=== PATIENT | male | born 1950 | race Caucasian/White ===

== ENCOUNTER 2020-10-08 13:59 | Outpatient (REF) | payer MEDICARE, SELFPAY ==
[2020-10-09 13:02] LABS: Free Prostate Spec Ag 0.8 ng/mL; Percent Free Prostate Spec Ag 30 % (calc) (>25); Prostate Specific Ag Total 2.7 ng/mL (< OR = 4.0)
== END 2020-10-08 14:00 | disposition home or self-care (01) ==
LOC: HO.LAB 13:59
PROVIDERS: PCP Internal Medicine; Visit Provider Urology
DX: R97.20 Elevated prostate specific antigen [PSA] (principal); Z12.5 Encounter for screening for malignant neoplasm of prostate
CPT/HCPCS: 36415; 84153; 84154

== ENCOUNTER → 2020-10-14 10:34 | Outpatient (BNVA) | payer MEDICARE, SELFPAY | PROVIDERS: PCP Internal Medicine; Visit Provider Urology | DX: N52.9 Male erectile dysfunction, unspecified (principal); N32.0 Bladder-neck obstruction; R97.20 Elevated prostate specific antigen [PSA] | CPT/HCPCS: Q3014 ==

== ENCOUNTER 2021-10-12 13:12 | Outpatient (REF) | payer MEDICARE, SELFPAY ==
[2021-10-12 14:27] LABS: PSA,Total (Free>4and<10) 3.19 ng/mL (0.00-4.00)
== END 2021-10-12 13:13 | disposition home or self-care (01) ==
LOC: HO.LAB 13:12
PROVIDERS: PCP Internal Medicine; Visit Provider Urology
DX: R97.20 Elevated prostate specific antigen [PSA] (principal); N40.1 Benign prostatic hyperplasia with lower urinary tract symptoms; N13.8 Other obstructive and reflux uropathy; Z12.5 Encounter for screening for malignant neoplasm of prostate
CPT/HCPCS: 36415; 84153

== ENCOUNTER → 2021-10-15 09:32 | Outpatient (BNVA) | payer MEDICARE, SELFPAY | PROVIDERS: PCP Internal Medicine; Visit Provider Urology | DX: N32.0 Bladder-neck obstruction (principal); N40.1 Benign prostatic hyperplasia with lower urinary tract symptoms; N13.8 Other obstructive and reflux uropathy; N52.9 Male erectile dysfunction, unspecified; R97.20 Elevated prostate specific antigen [PSA] | CPT/HCPCS: 51798; 99212 ==

== ENCOUNTER 2022-04-08 12:05 | Outpatient (REF) | payer MEDICARE, SELFPAY ==
[2022-04-08 13:16] LABS: Prostate Specific Antigen 3.25 ng/mL (<0.05-4.0)
== END 2022-04-08 12:06 | disposition home or self-care (01) ==
LOC: HO.LAB 12:05
PROVIDERS: PCP Internal Medicine; Visit Provider Urology
DX: N40.1 Benign prostatic hyperplasia with lower urinary tract symptoms (principal); N13.8 Other obstructive and reflux uropathy; R97.20 Elevated prostate specific antigen [PSA]; Z12.5 Encounter for screening for malignant neoplasm of prostate
CPT/HCPCS: 36415; 84153

== ENCOUNTER → 2022-04-16 09:31 | Outpatient (BNVA) | payer MEDICARE, SELFPAY | PROVIDERS: PCP Internal Medicine; Visit Provider Urology | DX: N52.9 Male erectile dysfunction, unspecified (principal); N32.0 Bladder-neck obstruction; R97.20 Elevated prostate specific antigen [PSA] | CPT/HCPCS: Q3014 ==

== ENCOUNTER 2022-10-14 12:51 | Outpatient (REF) | payer MEDICARE, SELFPAY ==
[2022-10-14 14:44] LABS: PSA,Total (Free>4and<10) 3.31 ng/mL (0.00-4.00)
== END 2022-10-14 12:52 | disposition home or self-care (01) ==
LOC: HO.LAB 12:51
PROVIDERS: PCP Internal Medicine; Visit Provider Urology
DX: Z12.5 Encounter for screening for malignant neoplasm of prostate (principal); N32.0 Bladder-neck obstruction
CPT/HCPCS: 36415; 84153

== ENCOUNTER 2022-10-22 15:45 | Outpatient (AMB) | payer MEDICARE, SELFPAY ==
--- NOTE | 2022-10-22 16:00 | MHC.OFFVIS ---
Intake Intake Visit Reasons: 6M PSA(set) Intake Note: Patient is present for PSA Results: 10/14/22- PSA: 3.31 Urology Med: Finasteride, Tadalafil Antibiotic Allergy: none Blood Thinner: none Allergies No Known Allergies [No Known Allergies*] Allergy (Verified 10/22/22 16:04) Medication List - Last Reconciled 10/22/22 by Melo Sims MD finasteride 5 mg PO DAILY 90 days ketoconazole 2% topical lisinopril-hydrochlorothiazide 20-12.5 mg 1 tab PO DAILY nirmatrelvir-ritonavir 150-100 mg (Paxlovid) 2 ea PO BID tadalafil 20 mg PO DAILY 90 days tadalafil 10 mg PO DAILY 90 days valacyclovir 1,000 mg PO DAILY HPI HPI Comments History of Present Illness Details Terry is a pleasant male. He is a patient of Dr. Eng. He seen for following urologic conditions - elevated PSA - lower urinary tract symptoms - erectile dysfunction PSA shows stability Continue with combination finasteride and Flomax Using 10 mg on demand Cialis Twelve month follow-up Elevated PSA Initially had low PSA that jumped to 5 Prostate biopsy performed and was negative Current therapy [facility] 08/30 3.0, 09/28 2.7, 10/30 3.1, 04/01 3.25, 10/31 3.3 Lower urinary tract symptoms Current therapy Proscar Prior therapy combination Proscar with tamsulosin Symptom evaluation 10/29 nocturia x1, good stream, effective emptying PVR 0cc Erectile dysfunction Has switched to 20 mg Cialis every day Would also like 10 mg on demand PFSH Medical History Elevated PSA Enlarged prostate without lower urinary tract symptoms (luts) Erectile dysfunction Hepatitis C HTN (hypertension) Skin cancer Surgical History H/O prostate biopsy S/P nasal surgery Status post surgical removal of malignant neoplasm of skin Family History Father Lung cancer Mother Brain cancer Review of Systems Const Denies chills and Denies fever(s) Card Reports no additional complaints and Denies syncope Resp Denies cough GI Denies abdominal pain and Denies heartburn Reports as per HPI and Denies change in libido Neuro Denies syncope Psych Denies change in libido Endo Denies change in libido Physical Exam Const General: cooperative, healthy appearing, comfortable and no acute distress Orientation/consciousness: patient oriented x3 HEENT Face and sinus: Yes normal facial exam Mouth: moist mucous membranes Neck Neck: Yes normal visual inspection, Yes full ROM and Yes trachea midline Chest Chest palpation & inspection: normal inspection of the chest Resp Effort & Inspection: normal respiratory effort, able to speak in complete sentences and no respiratory distress GI Inspection: Yes normal to inspection Back/Spine/Pelvis Cervical Spine: normal cervical lordosis Thoracic/Lumbar Spine: thoracic and lumbar spine normal to inspection Skin General skin exam: no rashes or lesions noted Neuro General: patient oriented x3, gait normal, tone normal and moves all extremities Extrem General: Yes normal to inspection and Yes capillary refill normal Assessment & Plan Assessment & Plan (1) Erectile dysfunction: Code(s): N52.9 - Male erectile dysfunction, unspecified (2) Bladder outlet obstruction: Code(s): N32.0 - Bladder-neck obstruction (3) Elevated PSA: Code(s): R97.20 - Elevated prostate specific antigen [PSA] Plan Twelve month follow-up Orders: Orders Prostate Specific Antigen 364 Days R97.20 - Elevated prostate specific antigen [PSA] Medications: Refilled finasteride 5 mg PO DAILY 90 tabs 3RF 90 days R97.20 - Elevated prostate specific antigen [PSA] Patient Instructions: Imaging studies, laboratory and physical exam results were discussed and reviewed in detail. No major barriers to patient understanding were identified. An opportunity to ask questions regarding the treatment plan was provided. All questions were answered. The patient expressed understanding and agreement with the above treatment plan. The patient is aware they should contact our office by phone for worsening of their current condition or the appearance of new urologic symptoms. Compliance is encouraged with any medications and followup testing that is ordered. It is a privilege to participate in the urologic care of your patient. If you have any questions or concerns regarding treatment for the above conditions, or other urologic issues, please do not hesitate to contact me. The office telephone contact is [phone]. This note is constructed using voice recognition software. While every effort has been made to ensure accuracy supervisor slate splitting errors may have been included. Yours sincerely, Dr Melo Sims MD, [facility] - Urology Providers of Expert, Compassionate Care for the Genitourinary System Coding Level of Care Code Est Pt Level 3 (21536) Diagnoses Erectile dysfunction N52.9 Bladder outlet obstruction N32.0 Elevated PSA R97.20
== END 2022-10-22 16:24 | disposition home or self-care (01) ==
LOC: HO.HUSH 15:45
PROVIDERS: PCP Internal Medicine; Visit Provider Urology
DX: N52.9 Male erectile dysfunction, unspecified (principal); N32.0 Bladder-neck obstruction; R97.20 Elevated prostate specific antigen [PSA]
CPT/HCPCS: 99213

== ENCOUNTER → 2022-10-22 15:45 | Outpatient (BNVA) | payer MEDICARE, SELFPAY | PROVIDERS: PCP Internal Medicine; Visit Provider Urology | DX: N52.9 Male erectile dysfunction, unspecified (principal); N32.0 Bladder-neck obstruction; R97.20 Elevated prostate specific antigen [PSA] | CPT/HCPCS: 99212 ==

== ENCOUNTER 2023-10-17 13:18 | Outpatient (REF) | payer MEDICARE, SELFPAY ==
[2023-10-17 15:54] LABS: Prostate Specific Antigen 5.93 ng/mL (<0.05-4.0)
== END 2023-10-17 13:19 | disposition home or self-care (01) ==
LOC: HO.LAB 13:18
PROVIDERS: PCP Internal Medicine; Visit Provider Urology
DX: R97.20 Elevated prostate specific antigen [PSA] (principal); Z12.5 Encounter for screening for malignant neoplasm of prostate
CPT/HCPCS: 36415; 84153

== ENCOUNTER 2023-10-25 11:36 | Outpatient (AMB) | payer MEDICARE, SELFPAY ==
--- NOTE | 2023-10-25 11:39 | A.OFFVIS_ITS ---
Intake Intake Visit Reasons: 1YPSA(set)Confirmed Intake Note: Patient is Present for Follow Up Urology Medication: Finasteride (Pt states he is not taking Tadalafil) Antibiotic Allergies: None Blood Thinners: None [facility] All[facility]ies No Known Allergies [No Known Allergies*] Allergy (Verified 10/25/23 11:43) Medication List - Last Reconciled 10/25/23 by Melo Sims MD finasteride 5 mg PO DAILY 90 days ketoconazole 2% topical lisinopril-hydrochlorothiazide 20-12.5 mg 1 tab PO DAILY nirmatrelvir-ritonavir 150-100 mg (Paxlovid) 2 ea PO BID tadalafil 20 mg PO DAILY 90 days tadalafil 10 mg PO DAILY 90 days valacyclovir 1,000 mg PO DAILY HPI HPI Comments History of Present Illness Details Terry is a pleasant male. He is a patient of Dr. Eng. He seen for following urologic conditions - elevated PSA - lower urinary tract symptoms - erectile dysfunction PSA jumped to 5.9 from 3.3 On combination finasteride and Flomax Using 10 mg on demand Cialis Bogginess on VIRAL Discussed biopsy Will get ExoDX urine test Elevated PSA Initially had low PSA that jumped to 5 Prostate biopsy performed and was negative Current therapy [facility] 08/30 3.0, 09/28 2.7, 10/30 3.1, 04/01 3.25, 10/31 3.3, 11/01 5.9 Lower urinary tract symptoms Current therapy [facility] Prior therapy combination Proscar with tamsulosin Symptom evaluation 10/29 nocturia x1, good stream, effective emptying PVR 0cc Erectile dysfunction Has switched to 20 mg Cialis every day Would also like 10 mg on demand PFSH Medical History Hepatitis C Skin cancer HTN (hypertension) Erectile dysfunction Enlarged prostate without lower urinary tract symptoms (luts) Elevated PSA Surgical History Status post surgical removal of malignant neoplasm of skin S/P nasal surgery H/O prostate biopsy Family History Father Lung cancer Mother Brain cancer Review of Systems Const Denies chills and Denies fever(s) Card Reports no additional complaints and Denies syncope Resp Denies cough GI Denies abdominal pain and Denies heartburn Reports as per HPI and Denies change in libido Neuro Denies syncope Psych Denies change in libido Endo Denies change in libido Physical Exam Const General: cooperative, healthy appearing, comfortable and no acute distress Orientation/consciousness: patient oriented x3 HEENT Face and sinus: Yes normal facial exam Mouth: moist mucous membranes Neck Neck: Yes normal visual inspection, Yes full ROM and Yes trachea midline Chest Chest palpation & inspection: normal inspection of the chest Resp Effort & Inspection: normal respiratory effort, able to speak in complete sentences and no respiratory distress GI Inspection: Yes normal to inspection Rectal Exam - Male: Yes normal sphincter tone and Yes prostate normal Male General Exam: Yes normal external exam Penis: normal penis and circumcised Meatus: meatus normal Scrotum: scrotum normal Testes: Testes normal Back/Spine/Pelvis Cervical Spine: normal cervical lordosis Thoracic/Lumbar Spine: thoracic and lumbar spine normal to inspection Skin General skin exam: no rashes or lesions noted Neuro General: patient oriented x3, gait normal, tone normal and moves all extremities Extrem General: Yes normal to inspection and Yes capillary refill normal Assessment & Plan Assessment & Plan (1) Erectile dysfunction: Code(s): N52.9 - Male erectile dysfunction, unspecified (2) Elevated PSA: Code(s): R97.20 - Elevated prostate specific antigen [PSA] Plan Urine DNA, 6 week follow-up tele Orders: Orders PSA,Total (Free>4and<10) Today R97.20 - Elevated prostate specific antigen [PSA] Patient Instructions: Imaging studies, laboratory and physical exam results were discussed and reviewed in detail. No major barriers to patient understanding were identified. An opportunity to ask questions regarding the treatment plan was provided. All questions were answered. The patient expressed understanding and agreement with the above treatment plan. The patient is aware they should contact our office by phone for worsening of their current condition or the appearance of new urologic symptoms. Compliance is encouraged with any medications and followup testing that is ordered. It is a privilege to participate in the urologic care of your patient. If you have any questions or concerns regarding treatment for the above conditions, or other urologic issues, please do not hesitate to contact me. The office telephone contact is [phone]. This note is constructed using voice recognition software. While every effort has been made to ensure accuracy elementary substitute teacher errors may have been included. Yours sincerely, Dr Melo Sims MD, [facility] - Urology Providers of Expert, Compassionate Care for the Genitourinary System Coding Level of Care Code Est Pt Level 4 (44808) Diagnoses Erectile dysfunction N52.9 Elevated PSA R97.20
== END 2023-10-25 11:58 | disposition home or self-care (01) ==
PROVIDERS: Visit Provider Urology
DX: N52.9 Male erectile dysfunction, unspecified (principal); R97.20 Elevated prostate specific antigen [PSA]
CPT/HCPCS: 99214

== ENCOUNTER 2023-10-25 12:26 | Outpatient (REF) | payer MEDICARE, SELFPAY ==
[2023-10-25 16:52] LABS: PSA,Total (Free>4and<10) 5.94 ng/mL (0.00-4.00)
[2023-10-27 11:33] LABS: Free Prostate Spec Ag 2.1 ng/mL; Percent Free Prostate Spec Ag 33 % (calc) (>25); Prostate Specific Ag Total 6.4 ng/mL (< OR = 4.0)
== END 2023-10-25 12:27 | disposition home or self-care (01) ==
LOC: HO.10HDL 12:26
PROVIDERS: Visit Provider Urology
DX: Z12.5 Encounter for screening for malignant neoplasm of prostate (principal); R97.20 Elevated prostate specific antigen [PSA]
CPT/HCPCS: 36415; 84153; 84154; 99212

== ENCOUNTER 2023-12-09 11:48 | Outpatient (AMB) | payer MEDICARE, SELFPAY ==
--- NOTE | 2023-12-09 11:54 | A.OFFVIS_ITS ---
Intake Visit Reasons: 6w/PSA/Exomed(set) Intake Note: Patient is Present for Telephone Follow Up For Urology Med: Tadalafil, Finasteride Antibiotic Allergy: None Blood Thinner: none Allergies No Known Allergies [No Known Allergies*] Allergy (Verified 02/02/24 13:25) HPI Comments Details: Terry is a pleasant male. He is a patient of Dr. Eng. He seen for following urologic conditions - elevated PSA - lower urinary tract symptoms - erectile dysfunction Telemedicine Evaluation 15 min Consultation [employer] Video attempted Recommend prostate biopsy ExoDX - 35.3 Elevated PSA Initially had low PSA that jumped to 5 Prostate biopsy performed and was negative Current therapy [facility] 08/30 3.0, 09/28 2.7, 10/30 3.1, 04/01 3.25, 10/31 3.3, 11/01 5.9 Lower urinary tract symptoms Current therapy Proscar Prior therapy combination Proscar with tamsulosin Symptom evaluation 10/29 nocturia x1, good stream, effective emptying PVR 0cc Erectile dysfunction Has switched to 20 mg Cialis every day Would also like 10 mg on demand PFSH Medical History Hepatitis C Skin cancer HTN (hypertension) Erectile dysfunction Enlarged prostate without lower urinary tract symptoms (luts) Elevated PSA Surgical History Status post surgical removal of malignant neoplasm of skin S/P nasal surgery H/O prostate biopsy Family History Father Lung cancer Mother Brain cancer Review of Systems Const All systems reviewed & are unremarkable except as noted in HPI and below Denies chills and Denies fever(s) Card Reports no additional complaints and Denies syncope Resp Denies cough GI Denies abdominal pain and Denies heartburn Reports as per HPI and Denies change in libido Musc Reports no additional complaints Neuro Denies syncope Psych Denies change in libido Endo Denies change in libido Physical Exam Telemedicine evaluation Appropriate responses Regular breathing rate and rhythm HEENT Head: Yes normal to inspection Ears: hearing grossly normal bilaterally Eyes General: appearance normal, both eyes and all related structures Neck Neck: Yes normal visual inspection Chest Chest palpation & inspection: normal inspection of the chest Resp Effort & Inspection: normal respiratory effort and able to speak in complete sentences Telehealth Telehealth Telehealth Platform: [employer] Location of provider rendering services: practice address Location of patient: address on file Patient Identification confirmed using: Name, : Yes Telehealth method: video Patient verbally consented to treatment: Yes Patient verbally consented to billing insurance company: Yes Patient informed of any privacy concerns related to visit: Yes Minutes spent on Phone/Video with Pt.: 15 Assessment & Plan Assessment & Plan (1) Elevated PSA: Code(s): R97.20 - Elevated prostate specific antigen [PSA] Category: Medical (2) Erectile dysfunction: Code(s): N52.9 - Male erectile dysfunction, unspecified Category: Medical (3) Bladder outlet obstruction: Code(s): N32.0 - Bladder-neck obstruction Category: Medical Plan Risks and benefits regarding trans rectal ultrasound with prostate biopsy were discussed. Options of continued surveillance, no treatment and biopsy were off ered. The risks include but are not limited to, urinary tract infection, sepsis, difficulty urinating, bleeding into the rectum or bladder that requires intervention and transfusion,and failure to diagnose prostate cancer. The patient understands the options and the risks involved. They wish to proceed. Printed information was provided to ensure he remains off anticoagulation for the appropriate length of time. He may require cardiology or PCP clearance. An antibiotic will be administered prior to, and following the procedure Patient Instructions: Imaging studies, laboratory and physical exam results were discussed and reviewed in detail. No major barriers to patient understanding were identified. An opportunity to ask questions regarding the treatment plan was provided. All questions were answered. The patient expressed understanding and agreement with the above treatment plan. The patient is aware they should contact our office by phone for worsening of their current condition or the appearance of new urologic symptoms. Compliance is encouraged with any medications and followup testing that is ordered. It is a privilege to participate in the urologic care of your patient. If you have any questions or concerns regarding treatment for the above conditions, or other urologic issues, please do not hesitate to contact me. The office telephone contact is [phone]. This note is constructed using voice recognition software. While every effort has been made to ensure accuracy card grinder helper errors may have been included. Yours sincerely, Dr Melo Sims MD, [facility] - Urology Providers of Expert, Compassionate Care for the Genitourinary System Coding Level of Care Code Tele Est Pt Level 4 (41929) Diagnoses Elevated PSA R97.20 Erectile dysfunction N52.9 Bladder outlet obstruction N32.0
== END 2023-12-09 13:30 | disposition home or self-care (01) ==
LOC: HO.HUSH 11:48
PROVIDERS: PCP Internal Medicine; Visit Provider Urology
DX: R97.20 Elevated prostate specific antigen [PSA] (principal); N52.9 Male erectile dysfunction, unspecified; N32.0 Bladder-neck obstruction
CPT/HCPCS: 99214

== ENCOUNTER → 2023-12-09 11:48 | Outpatient (BNVA) | payer MEDICARE, SELFPAY | PROVIDERS: PCP Internal Medicine; Visit Provider Urology ==

== ENCOUNTER 2024-01-17 07:34 | Outpatient (REF) | payer MEDICARE, SELFPAY ==
--- NOTE | 2024-01-17 08:25 | W.PM.OPN ---
Operative Note Operative Note Date of Service: 01/17/24 Narrative: Preoperative diagnosis: Elevated PSA Postoperative diagnosis: Elevated PSA Procedure: 1. transrectal ultrasound measurement of prostate 2. transrectal ultrasound-guided pudendal nerve block 3. transrectal ultrasound-guided prostate biopsy 12 core Surgeon: Dr. Melo Sims Anesthetic: 10cc 1% lidocaine Indications for procedure: Elevated PSA 5.9 33% Counselling: Technical aspects, risks and benefits of proposed procedure were discussed in full. All questions have been answered, written consent has been obtained and patient agrees to proceed. Procedure: The patient was brought into the procedure area and placed in a left lateral decubitus position. Patient identity confirmed. Perioperative antibiotics confirmed. Safety pause time out performed. VIRAL performed to dilate rectal sphincter Iodine 10cc with 60 cc gel was placed per rectum to reduce infection risk using a catheter tip syringe. 8 Hz Juan rectal end-fire ultrasound probe was placed transrectally without difficulty. The prostate was visualized. Seminal vesicles were normal. Prostate margins were clearly demarcated. Bladder was seen superiorly. No cystic structures were noted Yes calcifications were noted at the surgical margin The prostate was otherwise heterogenous in nature The prostate was measured in 3 dimensions Prostatic Width: 5.2 cm Prostatic Height: 3.7 Urethral Length:4.6 Total volume equals : 45 gm An ultrasound-guided pudendal nerve block was performed using a 22 gauge spinal needle in the sagittal plane. 4 cc of 1% lidocaine placed at the junction of each seminal vesicle and 2 cc placed at the apex of the prostate. A 12 core biopsy was performed with 6 cores each side using an 18 gauge prostate biopsy gun. Two cores were taken at the apex, mid and base. Cores were spaced between lateral and medial. Each core was examined as placed on specimen foam as part of coding quality coordinator to ensure minimum 1 cm of length and minimal discontinuity. He tolerated the procedure well, minimal rectal bleeding. Blood pressure remained stable following procedure. Was able to ambulate to bathroom after 5 minutes. - initial BP 133/79, final BP 129/78 HR 94, pulse ox 90%. Printed instructions regarding antibiotic use and common side effects from the procedure such as low-grade temperature, potential infection and bleeding were given Pathology: 12 core prostate biopsy.
[2024-01-17] MEDS: Lidocaine HCl 1 % MPF 5 ML VIAL 10 ML SUBCUT (08:39)
== END 2024-01-17 07:35 | disposition home or self-care (01) ==
LOC: HO.US 07:34
PROVIDERS: PCP Internal Medicine; Visit Provider Urology
DX: R97.20 Elevated prostate specific antigen [PSA] (principal)
CPT/HCPCS: 55700; 76942; 88305; 88344

== ENCOUNTER → 2024-01-17 07:34 | Outpatient (BNV) | payer MEDICARE, SELFPAY | PROVIDERS: PCP Internal Medicine; Visit Provider Urology | DX: R97.20 Elevated prostate specific antigen [PSA] (principal) | CPT/HCPCS: 55700; 76942 ==

== ENCOUNTER 2024-02-02 13:23 | Outpatient (AMB) | payer MEDICARE, SELFPAY ==
--- NOTE | 2024-02-02 13:23 | MHC.OFFVIS ---
Intake Visit Reasons: Prostate biopsy results Intake Note: Patient is Present for Telephone Follow Up For biopsy results Urology Med: finasteride, Tadalafil Antibiotic Allergy:None Blood Thinner:None Allergies No Known Allergies [No Known Allergies*] Allergy (Verified 02/02/24 13:25) Medication List - Last Reconciled 02/02/24 by Melo Sims MD finasteride 5 mg PO DAILY 90 days ketoconazole 2% topical levofloxacin 250 mg PO ONCE lisinopril-hydrochlorothiazide 20-12.5 mg 1 tab PO DAILY nirmatrelvir-ritonavir 150-100 mg (Paxlovid) 2 ea PO BID tadalafil 20 mg PO DAILY 90 days tadalafil 10 mg PO DAILY 90 days valacyclovir mg PO HPI Comments Details: Terry is a pleasant male. He is a patient of Dr. Eng. He seen for following urologic conditions - elevated PSA - lower urinary tract symptoms - erectile dysfunction Telemedicine Evaluation 15 min Consultation [employer] Video Discussed biopsy result Negative with chronic inflammation Continue six-month follow-up Elevated PSA Initially had low PSA that jumped to 5 Prostate biopsy performed and was negative Current therapy [facility] 08/30 3.0, 09/28 2.7, 10/30 3.1, 04/01 3.25, 10/31 3.3, 11/01 5.9 ExoDX - 35.3 Discussed biopsy result Negative with chronic inflammation Continue six-month follow-up Lower urinary tract symptoms Current therapy Proscar Prior therapy combination Proscar with tamsulosin Symptom evaluation 10/29 nocturia x1, good stream, effective emptying PVR 0cc Erectile dysfunction Has switched to 20 mg Cialis every day Would also like 10 mg on demand PFS Medical History Hepatitis C Skin cancer HTN (hypertension) Erectile dysfunction Enlarged prostate without lower urinary tract symptoms (luts) Elevated PSA Surgical History Status post surgical removal of malignant neoplasm of skin S/P nasal surgery H/O prostate biopsy Family History Father Lung cancer Mother Brain cancer Review of Systems Const Denies chills and Denies fever(s) Card Reports no additional complaints and Denies syncope Resp Denies cough GI Denies abdominal pain and Denies heartburn Reports as per HPI and Denies change in libido Neuro Denies syncope Psych Denies change in libido Endo Denies change in libido Physical Exam Const General: cooperative, healthy appearing, comfortable and no acute distress Orientation/consciousness: patient oriented x3 HEENT Face and sinus: Yes normal facial exam Mouth: moist mucous membranes Neck Neck: Yes normal visual inspection, Yes full ROM and Yes trachea midline Chest Chest palpation & inspection: normal inspection of the chest Resp Effort & Inspection: normal respiratory effort, able to speak in complete sentences and no respiratory distress GI Inspection: Yes normal to inspection Back/Spine/Pelvis Cervical Spine: normal cervical lordosis Thoracic/Lumbar Spine: thoracic and lumbar spine normal to inspection Skin General skin exam: no rashes or lesions noted Neuro General: patient oriented x3, gait normal, tone normal and moves all extremities Extrem General: Yes normal to inspection and Yes capillary refill normal Telehealth Telehealth Location of provider rendering services: practice address Location of patient: address on file Patient Identification confirmed using: Name, : Yes Telehealth method: video Patient verbally consented to treatment: Yes Patient verbally consented to billing insurance company: Yes Patient informed of any privacy concerns related to visit: Yes Assessment & Plan Assessment & Plan (1) Elevated PSA: Code(s): R97.20 - Elevated prostate specific antigen [PSA] Category: Medical (2) Bladder outlet obstruction: Code(s): N32.0 - Bladder-neck obstruction Category: Medical (3) Erectile dysfunction: Code(s): N52.9 - Male erectile dysfunction, unspecified Category: Medical Plan Six-month follow-up PSA Orders: Orders PSA,Total (Free>4and<10) 6 Months N32.0 - Bladder-neck obstruction Patient Instructions: Imaging studies, laboratory and physical exam results were discussed and reviewed in detail. No major barriers to patient understanding were identified. An opportunity to ask questions regarding the treatment plan was provided. All questions were answered. The patient expressed understanding and agreement with the above treatment plan. The patient is aware they should contact our office by phone for worsening of their current condition or the appearance of new urologic symptoms. Compliance is encouraged with any medications and followup testing that is ordered. It is a privilege to participate in the urologic care of your patient. If you have any questions or concerns regarding treatment for the above conditions, or other urologic issues, please do not hesitate to contact me. The office telephone contact is [phone]. This note is constructed using voice recognition software. While every effort has been made to ensure accuracy environmental health inspector errors may have been included. Yours sincerely, Dr Melo Sims MD, [facility] - Urology Providers of Expert, Compassionate Care for the Genitourinary System Coding Level of Care Code Tele Est Pt Level 3 (77885) Diagnoses Elevated PSA R97.20 Bladder outlet obstruction N32.0 Erectile dysfunction N52.9
== END 2024-02-02 14:12 | disposition home or self-care (01) ==
LOC: HO.HUSH 13:23
PROVIDERS: PCP Internal Medicine; Visit Provider Urology
DX: R97.20 Elevated prostate specific antigen [PSA] (principal); N32.0 Bladder-neck obstruction; N52.9 Male erectile dysfunction, unspecified
CPT/HCPCS: 99213

== ENCOUNTER → 2024-02-02 13:23 | Outpatient (BNVA) | payer MEDICARE, SELFPAY | PROVIDERS: PCP Internal Medicine; Visit Provider Urology ==

== ENCOUNTER 2024-07-24 12:57 | Outpatient (REF) | payer MEDICARE, SELFPAY ==
[2024-07-24 14:29] LABS: PSA,Total (Free>4and<10) 5.01 ng/mL (0.00-4.00)
--- OUTSIDE RECORDS SUMMARY | 2024-07-24 15:15 | XMS_ITS | Data Portability ---
Author Organization ID - [facility], Allergy Address [address] [place] [id number] Care Team Providers Care Manager Revenue Name Role Phone JOY ARROYO Primary Care Provider Assessment Encounter Date Assessment Date Assessment LastModified by Organization Details LastModified Time 05/08/2024 05/08/2024 2 year interval MRI scan reviewed with the patient personally. This shows no signs of change in size or character of the left internal auditory canal lesion, which remains consistent with stable, non-growing acoustic neuroma. Audiometric testing today today shows stable hearing in the affected ear. I've recommended continued observation with follow-up MRI scan in 3 years, which we will arrange for the patient. Patient was instructed to contact me if they experience any sudden changes in hearing, balance, or facial function. [email or web address] Not available 05/08/2024 08:35:38 Plan of Treatment Reminders Order Date Submit Date Provider Last Modified By Organization Details Last Modified Time Details Appointments None recorded. Lab None recorded. Referral None recorded. Procedures None recorded. Surgeries None recorded. Imaging MRI, brain + internal auditory canal, w/wo contrast - MRI, BRAIN + INTERNAL AUDITORY CANAL, W/WO CONTRAST 2023 027 [email or web address] [facility], [address] [facility], [facility] [address], [place], [address], 09:44:40 Medication Orders None recorded. Patient TargetsNo targets recorded. Patient InstructionsNo instructions recorded. Reason for Referral None Reported. Results Created Date Observation Date Name Description Value Unit Range Abnormal Flag Note LastModifiedBy Organization Detail LastModifiedTime 05/02/2004/27/2024 MRI, brain + inter nal audit ory canal , w/wo contr ast No observ ation record ed. [email or web address] [facility] [address] [facility] [address], [place], [address], 05/02/2024 11:30:04 05/08/20 24 audio gram No observ ation record ed. [email or web address] Not Available 04/11 09:44:20 Result Notes None recorded. Problems Name Problem SNOMED Code Status Onset Date Resolution Date Notes Provider Name and Address Organization Details Recorded Time Sensorine ural hearing loss of bilateral ears 436863824 Active 2018 Sensorine ural hearing loss, bilateral ; Note: Date Diagnosed : 08/22/2018 9:06 AM (H90.3) Not Available [facility] 4 02:49:26 Impacted cerumen in right ear 86471825145 90533 Active 2018 Impacted cerumen, right ear; Note: Date Diagnosed : 08/22/2018 9:06 AM (H61.21) Not Available [facility] 4 02:49:32 Deviated nasal septum 997064798 Active 2014 Deviated nasal septum; Note: Date Diagnosed : 01/03/2015 2:07 PM (470) Deviate d nasal septum; Note: Date Diagnosed : 01/03/2015 2:07 PM (J34.2) Not Available [facility] 4 02:49:30 Benign neoplasm of cranial nerve 97587100 Active 2018 Benign neoplasm of cranial nerves; Note: Date Diagnosed : 08/22/2018 9:06 AM (D33.3) Not Available [facility] 4 02:49:28 Acquired deformity of nose 22587495 Active 2014 Nasal deformity , acquired; Note: Date Diagnosed : 01/16/2015 3:38 PM (738.0) Not Available [facility] 4 02:49:31 Problem Notes None recorded. Procedures Surgical History Date Name Laterality Status Provider Name and Address Organization Details Recorded Time 05/08/2024 Air & Speech Audio with Tymps (52945, 53231 & 37600) completed HUEY SHIN, [facility] [address] [address], [place], [address], [facility] - [facility] 05/08/2024 08:50:11 Imaging Results Imaging Date Name Status LastModified by [facility] Details LastModified Time 04/27/2024 MRI, brain + internal auditory canal, w/wo contrast completed [facility] [address] [facility] [address], [place], [address], 05/02/2024 11:30:04 05/08/2024 audiogram completed [email or web address] Information n ot available 05/08/2024 09:44:20 Procedure Notes None recorded. Medical Equipment None Reported. Allergies No known drug allergies Medications Name Sig Start Date Stop Date Status Note LastModified by Organization Details LastModified Time ketoconaz ole 2 % shampoo active Not Available Not Available Not Available triazolam 0.25 mg tablet 05/25 completed Medicati on ID: [id number] D uration Value: 30 Brand Name: triazola m Send Method: E-Prescr ibed Sub s Allowed: subs OK Speci al Instruct ion: TAKE 1 TABLET BY MOUTH AT BEDTIME NEEDED M edicatio nGeneric Name: triazola m Not Available Not Available Not Available lisinopri l 20 mg-hydroc hlorothia zide 12.5 mg tablet active Not Available Not Available No t Available valacyclo vir 1 gram tablet active Not Available Not Available Not Available lisinopri l 20 mg tablet 08/22 completed Medicati on ID: [id number] Re ason: () Brand Name: lisinopr il Send Method: E-Prescr ibed Sub s Allowed: subs OK Medic ationGen ericName : lisinopr il Not Available Not Available Not Available levofloxa laron 250 mg tablet TAKE 1 TABLET THE DAY AFTER PROSTATE BIOPSY 05/08 completed Not Available Not Available Not Available valacyclo vir 500 mg tablet TAKE 1 TABLET BY MOUTH EVERY DAY FOR SUPPRESS ION 05/08 completed Not Available Not Available Not Available tamsulosi n 0.4 mg capsule 2018 active Medicati on ID: [id number] D uration Value: 90 Brand Name: tamsulos in Send Method: E-Prescr ibed Sub s Allowed: subs OK Medic ationGen ericName : tamsulos in Not Available Not Available Not Available mupirocin 2 % topical ointment APPLY TO SURGICAL SITE TWICE A DAY FOR 10-14 DAYS DAYS OR UNTIL FULLY HEALED active Not Available Not Available No t Available finasteri de 5 mg tablet active Not Available Not Available Not Available tadalafil 10 mg tablet TAKE ONE TABLET BY MOUTH EVERY DAY FOR SEXUAL ACTIVITY . DAILY MEDICATI ON active Not Available Not Available No t Available tadalafil 20 mg tablet TAKE ONE TABLET BY MOUTH EVERY DAY active Not Available Not Available No t Available Glucosami ne-Chondr oitin 3X Triple Strength 750 mg-600 mg tablet 2018 active Medicati on ID: [id number] B rand Name: Glucosam ine-Rehan droitin 3X Str Send Method: E-Prescr ibed Sub s Allowed: subs OK Medic ationGen ericName : Glucosam ine-Rehan droitin 3X Str Not Available Not Available Not Available Centrum Silver 0.4 mg-300 mcg-250 mcg tablet 2018 active Medicati on ID: [id number] B rand Name: Centrum Silver S end Method: E-Prescr ibed Sub s Allowed: subs OK Medic ationGen ericName : Centrum Silver Not Available Not Available Not Available Vitals None Recorded Social History None recorded. Functional Status None recorded. Mental Status None recorded. Family History Nothing Reported. Medical History Condition Response Cancer Hypertension Y Past Encounters Encounter ID Performer Location Encounter Start Date Encounter Closed Date Diagnosis/Indication Diagnosis SNOMED-CT Code Diagnosis ICD10 Code Diagnosis Note [id number] JERONIMO JUARES MD [facility] [address] [address] 05/08/2024 08:28:31 05/08/2024 09:44:40 Benign neoplasm of cranial nerve 98091861 D33.3 Sensorineu ral hearing loss of bilateral ears 439106155 H90.3 Audiologic al evaluation results:Ri ght ear:{{Norm al sloping* M ild Modera te Moderat mac-severe Severe Pr ofound Nor mal auditory thresholds }} to {{mild mod erate mode rately-sev ere* sever e profound with}} {{sensorin eural hearing loss with* cond uctive hearing loss with mixed hearing loss with}} {{excellen t* good fa ir poor no t measurable }} word recognitio n.Left ear:{{Norm al sloping Mi ld Moderat e* Moderat mac-severe Severe Pr ofound Nor mal auditory thresholds }} to {{mild mod erate mode rately-sev ere severe profound* with}} {{sensorin eural hearing loss with* cond uctive hearing loss with mixed hearing loss with}} {{excellen t good becca r poor* no t measurable }} word recognitio n.Tympanom etry:Right Ear:{{Type A* Type As Type Ad Type C Type C, shallow & rounded Ty pe B Type B with large volume Cou ld not maintain a hermetic seal}}Left Ear:{{Type A* Type As Type Ad Type C Type C, shallow & rounded Ty pe B Type B with large volume Cou ld not maintain a hermetic seal}}Florentino ometric testing reviewed with the patient and his . We discussed how his use of binaural amplificat ion will be helpful for general sound awareness and spatial awareness, but his right ear is best suited for speech recognitio n. He prefers using 2 hearing aids over BiCROS amplificat ion based on his previous use of both technologi es. I have given him a copy of his audiogram. We discussed that his devices are manufactur ed by [employer] and he should connect with an audiologis t who is able to continue with hearing aid maintenanc e and programmin g as needed. I have given him a copy of his audiogram and updated medical clearance so that he can pursue this at his convenienc e. Health Concerns Section Related Observation LastModified by Organization Detai ls LastModified Time None Recorded Concern Status LastModified by Organization Details LastModified Time None Recorded Advance Directives Directive None Recorded Payers Encounter Date Sequence Insurance Name Policy Number Policy Mann Covered Member ID Mann Member ID Guarantor Name 05/08/2024 1 [employer]UE (MEDICARE REPLACEMENT PPO) [id number] Buark Torre [id number] Burak Torre Notes Date Note Type Note Provider Name and Address Organization Details Recorded Time 05/08/2024 text/html Patient with kno wn {{right left*}}-mariella ed 12 x 7 x 5 mm acoustic neuroma originally detected in {{ July 2018#}} who is under serial MRI surveillance protocol. Patient comes in today for most recent {{6 month 1 year 2 year* 3 year}} MRI review. Patient notes {{no hearing changes* worse hearing}} in comparison to last visit. No facial twitching or weakness. No new balance disturbance. Patient has used BiCROS amplification in the past, but got binaural BTE [employer] amplification from [facility] which has since closed. JERONIMO JUARES MD [address] [place] [address], [place], [address], [place] - [facility] 05/08/2024 09:44:30
--- OUTSIDE RECORDS SUMMARY | 2024-07-24 15:15 | XMS_ITS | Continuity of Care Document ---
Author Organization [place] - [facility], [facility] Address [address] [place] [address] Care Team Providers Care Engine Turner Name Role Phone JOY ARROYO Primary Care Provider [phone] Assessment Encounter Date Assessment Date Assessment LastModified [...] changes in hearing, balance, or facial function. [email or web address] Not available 05/08/2024 08:35:38 Plan of Treatment Reminders Order Date Submit Date Provider Last Modified By Organization Details Last Modified Time Details Appointments None recorded. Lab None recorded. Referral None recorded. Procedures None recorded. Surgeries None recorded. Imaging MRI, brain + internal auditory canal, w/wo contrast - MRI, BRAIN + INTERNAL AUDITORY CANAL, W/WO CONTRAST 2023 027 [email or web address] [facility], [address] [address], [place], [address], 09:44:40 Medication Orders None recorded. Patient TargetsNo targets recorded. Patient InstructionsNo instructions recorded. Reason for Referral None Reported. Results Created Date Observation Date Name Description Value Unit Range Abnormal Flag Note LastModifiedBy Organization Detail LastModifiedTime 05/02/20 24 04/27/2024 MRI, brain + inter nal audit ory canal , w/wo contr ast No observ ation record ed. [facility] [address] [facility] [address], [place], [address], 05/02/2024 11:30:04 05/08/20 24 audio gram No observ ation record ed. [email or web address] Not Available 04/11 09:44:20 Result Notes None recorded. Problems Name Problem SNOMED Code Status Onset Date Resolution Date Notes Provider Name and Address Organization Details Recorded Time Sensorine ural hearing loss of bilateral ears 293979522 Active 2018 Sensorine ural hearing loss, bilateral ; Note: Date Diagnosed : 08/22/2018 9:06 AM (H90.3) Not Available [facility] 4 02:49:26 Impacted cerumen in right ear 59720603025 67314 Active 2018 Impacted cerumen, right ear; Note: Date Diagnosed : 08/22/2018 9:06 AM (H61.21) Not Available [facility] 4 02:49:32 Deviated nasal septum 538687930 Active 2014 Deviated nasal septum; Note: Date Diagnosed : 01/03/2015 2:07 PM (470) Deviate d nasal septum; Note: Date Diagnosed : 01/03/2015 2:07 PM (J34.2) Not Available [facility] 4 02:49:30 Benign neoplasm of cranial nerve 79026653 Active 2018 Benign neoplasm of cranial nerves; Note: Date Diagnosed : 08/22/2018 9:06 AM (D33.3) Not Available [facility] 4 02:49:28 Acquired deformity of nose 03174575 Active 2014 Nasal deformity , acquired; Note: Date Diagnosed : 01/16/2015 3:38 PM (738.0) Not Available [facility] 4 02:49:31 Problem Notes None recorded. Procedures Surgical History Date Name Laterality Status Provider Name and Address Organization Details Recorded Time 05/08/2024 Air & Speech Audio with Tymps (40538, 81105 & 62535) completed HUEY SHIN, [address], [address], [facility] - [facility] 05/08/2024 08:50:11 Imaging Results None recorded. Procedure Notes None recorded. Medical Equipment None Reported. Allergies No known drug allergies Medications Name Sig Start Date Stop Date Status Note LastModified by Organization Details LastModified Time ketoconaz ole 2 % shampoo active Not Available Not Available Not Available triazolam 0.25 mg tablet 05/25 completed Medicati on ID: [id number] D uration Value: 30 Brand Name: triazola [...] mg tablet 08/22 completed Medicati on ID: [id number] Re ason: () Brand Name: lisinopr il [...] mg capsule 2018 active Medicati on ID: [id number] D uration Value: 90 Brand Name: tamsulos [...] mg tablet 2018 active Medicati on ID: [id number] B rand Name: Glucosam ine-Rehan droitin 3X Str Send Method: E-Prescr ibed Sub s Allowed: subs OK Medic ationGen ericName : Glucosam ine-Rehan droitin 3X Str Not Available Not Available Not Available Centrum Silver 0.4 mg-300 mcg-250 mcg tablet 2018 active Medicati on ID: [id number] B rand Name: Centrum Silver S end [...] SNOMED-CT Code Diagnosis ICD10 Code Diagnosis Note [id number] JERONIMO JUARES MD [facility] [address] [address] 05/08/2024 08:28:31 05/08/2024 09:44:40 Benign neoplasm of cranial nerve 94574131 D33.3 Sensorineu ral hearing loss of bilateral ears 183037099 H90.3 Audiologic al evaluation results:Ri ght ear:{{Norm [...] that [facility] Health Concerns Section Related Observation LastModified by Organization Detai ls LastModified Time None Recorded Concern Status LastModified by Organization Details LastModified Time None Recorded Payers Encounter Date Sequence Insurance Name Policy Number Policy Mann Covered Member ID Mann Member ID Guarantor Name 05/08/2024 1 [facility]: MEDICARE PPO BLUE (MEDICARE REPLACEMENT PPO) [id number] Burak Torre [id number] Burak Torre Notes Date Note Type [...] which has since closed. JERONIMO JUARES MD [address] [place] [address], [address], [facility] - [facility] 05/08/2024 09:44:30
[2024-07-25 12:58] LABS: Free Prostate Spec Ag 1.3 ng/mL; Percent Free Prostate Spec Ag 25 % (calc) (>25); Prostate Specific Ag Total 5.1 ng/mL (< OR = 4.0)
== END 2024-07-24 12:58 | disposition home or self-care (01) ==
LOC: HO.LAB 12:57
PROVIDERS: PCP Internal Medicine; Visit Provider Urology
DX: N32.0 Bladder-neck obstruction (principal); Z12.5 Encounter for screening for malignant neoplasm of prostate
CPT/HCPCS: 36415; 84153; 84154

== ENCOUNTER 2024-08-01 13:15 | Outpatient (AMB) | payer MEDICARE, SELFPAY ==
--- NOTE | 2024-08-01 13:19 | A.OFFVIS_ITS ---
Intake Visit Reasons: 6M PSA(set)Elevated Intake Note: Patient is present for 6M PSA ELEVATED Urology Medication:FINASTERIDE,TADALAFIL Antibiotic Allergy:NONE Blood Thinner:NONE Sand Technician Required: No Allergies No Known Allergies [No Known Allergies*] Allergy (Verified 08/01/24 13:19) HPI Comments Details: Terry is a pleasant male. He is a patient of Dr. Eng. He seen for following urologic conditions - elevated PSA - lower urinary tract symptoms - erectile dysfunction Six-month follow-up PSA remained stable Six-month follow-up tele Elevated PSA Initially had low PSA that jumped to 5 Prostate biopsy performed and was negative Volume 45 g Current therapy [facility] 08/30 3.0, 09/28 2.7, 10/30 3.1, 04/01 3.25, 10/31 3.3, 11/01 5.9, 08/04 5.0 Free 25% ExoDX - 35.3 Lower urinary tract symptoms Current therapy Proscar Prior therapy combination Proscar with tamsulosin Symptom evaluation 10/29 nocturia x1, good stream, effective emptying PVR 0cc Erectile dysfunction Has switched to 20 mg Cialis every day Would also like 10 mg on demand PFSH Medical History Hepatitis C Skin cancer HTN (hypertension) Erectile dysfunction Enlarged prostate without lower urinary tract symptoms (luts) Elevated PSA Surgical History Status post surgical removal of malignant neoplasm of skin S/P nasal surgery H/O prostate biopsy Family History Father Lung cancer Mother Brain cancer Review of Systems Const Denies chills and Denies fever(s) Card Reports no additional complaints and Denies syncope Resp Denies cough GI Denies abdominal pain and Denies heartburn Reports as per HPI and Denies change in libido Neuro Denies syncope Psych Denies change in libido Endo Denies change in libido Physical Exam Const General: cooperative, healthy appearing, comfortable and no acute distress Orientation/consciousness: patient oriented x3 HEENT Face and sinus: Yes normal facial exam Mouth: moist mucous membranes Neck Neck: Yes normal visual inspection, Yes full ROM and Yes trachea midline Chest Chest palpation & inspection: normal inspection of the chest Resp Effort & Inspection: normal respiratory effort, able to speak in complete sentences and no respiratory distress GI Inspection: Yes normal to inspection Back/Spine/Pelvis Cervical Spine: normal cervical lordosis Thoracic/Lumbar Spine: thoracic and lumbar spine normal to inspection Skin General skin exam: no rashes or lesions noted Neuro General: patient oriented x3, gait normal, tone normal and moves all extremities Extrem General: Yes normal to inspection and Yes capillary refill normal Results AMB Urinalysis, Automated UA Leukoctes 0 Corrie/uL Last Edit by ANIBAL Salinas on 08/01/24 13:28 UA Nitrite Negative Last Edit by Marbin Lawton CCM on 08/01/24 13:28 UA Urobilinogen 0.2 mg/dL Last Edit by ANIBAL Salinas on 08/01/24 13:2 8 UA Protein 30 mg/dL Last Edit by Marbin Lawton CCM on 08/01/24 13:28 UA pH 6.0 Last Edit by Marbin Lawton CCM on 08/01/24 13:28 UA Blood 10 Marco A/uL Last Edit by Marbin Lawton CCM on 08/01/24 13:28 UA Specific [place] 1.020 Last Edit by ANIBAL Salinas on 08/01/24 13: 28 UA Ketone Negative Last Edit by ANIBAL Salinas on 08/01/24 13:28 UA Bilirubin 0 mg/dL Last Edit by Marbin Lawton CCM on 08/01/24 13:28 UA Glucose 0 mg/dL Last Edit by Marbin Lawton CCM on 08/01/24 13:28 Results Reviewed Results Reviewed: Laboratory Last Values Urine pH (Auto) 6.0 08/01/24 13:28 Specific [place] (Auto) 1.020 08/01/24 13:28 Urine Protein (Auto) 30 mg/dL 08/01/24 13:28 Glucose (UA)(Auto) 0 mg/dL 08/01/24 13:28 Urine Ketones (Auto) Negative 08/01/24 13:28 Urine Blood (Auto) 10 Marco A/uL 08/01/24 13:28 Urine Nitrite (Auto) Negative 08/01/24 13:28 Urine Bilirubin (Auto) 0 mg/dL 08/01/24 13:28 Urine Urobilinogen (Auto) 0.2 mg/dL 08/01/24 13:28 Leukocyte Esterase (Auto) 0 Corrie/uL 08/01/24 13:28 Assessment & Plan Assessment & Plan (1) Elevated PSA: Code(s): R97.20 - Elevated prostate specific antigen [PSA] Category: Medical (2) Erectile dysfunction: Code(s): N52.9 - Male erectile dysfunction, unspecified Category: Medical Plan Six-month follow-up tele PSA Orders: Orders AMB Urinalysis Automated Today Z13.9 - Encounter for screening, unspecified Prostate Specific Antigen 6 Months R97.20 - Elevated prostate specific antigen [PSA] Patient Instructions: Imaging studies, laboratory and physical exam results were discussed and reviewed in detail. No major barriers to patient understanding were identified. An opportunity to ask questions regarding the treatment plan was provided. All questions were answered. The patient expressed understanding and agreement with the above treatment plan. The patient is aware they should contact our office by phone for worsening of their current condition or the appearance of new urologic symptoms. Compliance is encouraged with any medications and followup testing that is ordered. It is a privilege to participate in the urologic care of your patient. If you have any questions or concerns regarding treatment for the above conditions, or other urologic issues, please do not hesitate to contact me. The office telephone contact is [phone]. This note is constructed using voice recognition software. While every effort has been made to ensure accuracy packerhead machine operator errors may have been included. Yours sincerely, Dr Melo Sims MD, [facility] - Urology Providers of Expert, Compassionate Care for the Genitourinary System Coding Level of Care Code Est Pt Level 3 (37197) Diagnoses Elevated PSA R97.20 Erectile dysfunction N52.9
--- OUTSIDE RECORDS SUMMARY | 2024-08-01 15:19 | XMS_ITS | Data Portability ---
Author Organization [place] - [facility], Allergy Address [address] [place] [phone] Care Team Providers Care Loop Machine Operator Name Role Phone JOY ARROYO Primary Care [...] changes in hearing, balance, or facial function. [email or web address] Not available 05/08/2024 08:35:38 Plan of Treatment Reminders Order Date Submit Date Provider Last Modified By Organization Details Last Modified Time Details Appointments None recorded. Lab None recorded. Referral None recorded. Procedures None recorded. Surgeries None recorded. Imaging MRI, brain + internal auditory canal, w/wo contrast - MRI, BRAIN + INTERNAL AUDITORY CANAL, W/WO CONTRAST 2023 027 [email or web address] [facility] [place], [address] [facility], [facility] [address], [place], [address], 09:44:40 Medication Orders None recorded. Patient TargetsNo targets recorded. Patient InstructionsNo instructions recorded. Reason for Referral None Reported. Results Created Date Observation Date Name Description Value Unit Range Abnormal Flag Note LastModifiedBy Organization Detail LastModifiedTime 05/02/2004/27/2024 MRI, brain + inter nal audit ory canal , w/wo contr ast No observ ation record ed. [email or web address] [facility] [place] [address] [facility] [address], [place], [address], 05/02/2024 11:30:04 05/08/20 24 audio gram No observ ation record ed. [email or web address] Not Available 04/11 09:44:20 Result Notes None recorded. Problems Name Problem SNOMED Code Status Onset Date Resolution Date Notes Provider Name and Address Organization Details Recorded Time Sensorine ural hearing loss of bilateral ears 025502206 Active 2018 Sensorine ural hearing loss, bilateral ; Note: Date Diagnosed : 08/22/2018 9:06 AM (H90.3) Not Available [facility] 4 02:49:26 Impacted cerumen in right ear [id number] 73015 Active 2018 Impacted cerumen, right ear; Note: Date Diagnosed : 08/22/2018 9:06 AM (H61.21) Not Available [facility] 4 02:49:32 Deviated nasal septum 197889507 Active 2014 Deviated nasal septum; Note: Date Diagnosed : 01/03/2015 2:07 PM (470) Deviate d nasal septum; Note: Date Diagnosed : 01/03/2015 2:07 PM (J34.2) Not Available [facility] 4 02:49:30 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 Procedures Surgical History Date Name Laterality Status Provider Name and Address Organization Details Recorded Time 05/08/2024 Air & Speech Audio with Tymps (16238, 34201 & 05213) completed HUEY SHIN, [facility] [address] [address], [place], [address], [facility] - [facility] 05/08/2024 08:50:11 Imaging Results Imaging Date Name Status LastModified by [facility] Details LastModified Time 04/27/2024 MRI, brain + internal auditory canal, w/wo contrast completed [email or web address] [facility] [place] [address] [facility] [address], [place], [address], 05/02/2024 11:30:04 05/08/2024 audiogram completed [email or web address] Information n ot available 05/08/2024 09:44:20 Procedure Notes None recorded. Medical Equipment None Reported. Allergies No known drug allergies Medications Name Sig Start Date Stop Date Status Note LastModified by Organization Details LastModified Time ketoconaz ole 2 % shampoo active Not Available Not Available Not Available triazolam 0.25 mg tablet 05/25 completed Medicati on ID: [id number] D uration Value: 30 Brand Name: triazola [...] mg tablet 08/22 completed Medicati on ID: [id number] Re ason: () Brand Name: lisinopr il [...] mg capsule 2018 active Medicati on ID: [id number] D uration Value: 90 Brand Name: tamsulos [...] mg tablet 2018 active Medicati on ID: [id number] B rand Name: Glucosam ine-Rehan droitin 3X Str Send Method: E-Prescr ibed Sub s Allowed: subs OK Medic ationGen ericName : Glucosam ine-Rehan droitin 3X Str Not Available Not Available Not Available Centrum Silver 0.4 mg-300 mcg-250 mcg tablet 2018 active Medicati on ID: [id number] B rand Name: Centrum Silver S end [...] SNOMED-CT Code Diagnosis ICD10 Code Diagnosis Note [id number] JERONIMO JUARES MD [facility] [address] [address] 05/08/2024 08:28:31 05/08/2024 09:44:40 Benign neoplasm of cranial nerve 90951561 D33.3 Sensorineu ral hearing loss of bilateral ears 961959468 H90.3 Audiologic al evaluation results:Ri ght ear:{{Norm [...] [place] (MEDICARE [place]PLACEMENT PPO) [id number] Burak Torre [id number] 22 Burak Torre Notes Date Note Type [...] which has since closed. JERONIMO JUARES MD [address] [place] [address], [place], [address], [place] - [facility] 05/08/2024 09:44:30
== END 2024-08-01 15:41 | disposition home or self-care (01) ==
PROVIDERS: PCP Internal Medicine; Visit Provider Urology
DX: R97.20 Elevated prostate specific antigen [PSA] (principal); N52.9 Male erectile dysfunction, unspecified; Z13.9 Encounter for screening, unspecified
CPT/HCPCS: 99213

== ENCOUNTER → 2024-08-01 13:15 | Outpatient (BNVA) | payer MEDICARE, SELFPAY | PROVIDERS: PCP Internal Medicine; Visit Provider Urology | DX: N52.9 Male erectile dysfunction, unspecified (principal); R97.20 Elevated prostate specific antigen [PSA] | CPT/HCPCS: 81003; 99212 ==

== ENCOUNTER 2025-02-04 13:19 | Outpatient (REF) | payer MEDICARE, SELFPAY ==
--- OUTSIDE RECORDS SUMMARY | 2025-02-04 14:03 | XMS_ITS | Data Portability ---
Author Organization [place] - [facility], Allergy Address [address] [place] [phone] Care Team Providers Care Button Decorating Machine Operator Name Role Phone JOY ARROYO [...] changes in hearing, balance, or facial function. [email or web address] Not available 05/08/2024 08:35:38 Plan of Treatment Reminders Order Date Submit Date Provider Last Modified By Organization Details Last Modified Time Details Appointments None recorded. Lab None recorded. Referral None recorded. Procedures None recorded. Surgeries None recorded. Imaging MRI, brain + internal auditory canal, w/wo contrast - MRI, BRAIN + INTERNAL AUDITORY CANAL, W/WO CONTRAST 2023 027 [email or web address] 14 [facility] [place], [address] [facility], [facility] [address], [place], [address], 09:44:40 Medication Orders None recorded. Patient TargetsNo targets recorded. Patient InstructionsNo instructions recorded. Reason for Referral None Reported. Results Created Date Observation Date Name Description Value Unit Range Abnormal Flag Note LastModifiedBy Organization Detail LastModifiedTime 05/02/20 24 04/27/2024 MRI, brain + inter nal audit ory canal , w/wo contr ast No observ ation record ed. [email or web address] [facility] [place] [address] [facility] [address], [place], [address], 05/02/2024 11:30:04 05/08/20 24 audio gram No observ ation record ed. [email or web address] Not Available 04/11 09:44:20 Result Notes None recorded. Problems Name Problem SNOMED Code Status Onset Date Resolution Date Notes Provider Name and Address Organization Details Recorded Time Deviated nasal septum 738804877 Active 2014 Deviated nasal septum; Note: Date Diagnosed : 01/03/2015 2:07 PM (470) Deviate d nasal septum; Note: Date Diagnosed : 01/03/2015 2:07 PM (J34.2) Not Available [facility] 4 02:49:30 Acquired deformity of nose 18294834 Active 2014 Nasal deformity , acquired; Note: Date Diagnosed : 01/16/2015 3:38 PM (738.0) Not Available [facility] 4 02:49:31 Sensorine ural hearing loss of bilateral ears 958271646 Active 2018 Sensorine ural hearing loss, bilateral ; Note: Date Diagnosed : 08/22/2018 9:06 AM (H90.3) Not Available [facility] 4 02:49:26 Impacted cerumen in right ear 00270438567 60469 Active 2018 Impacted cerumen, right ear; Note: Date Diagnosed : 08/22/2018 9:06 AM (H61.21) Not Available [facility] 4 02:49:32 Benign neoplasm of cranial nerve 24366654 Active 2018 Benign neoplasm of cranial nerves; Note: Date Diagnosed : 08/22/2018 9:06 AM (D33.3) Not Available [facility] 4 02:49:28 Problem Notes None recorded. Procedures Surgical History Date Name Laterality Status Provider Name and Address Organization Details Recorded Time 05/08/2024 Air & Speech Audio with Tymps - 216[address], [address] & 65867 completed HUEY SHIN, [facility] [address] [address], [place], [address], [facility] - [facility] 05/08/2024 08:50:11 Imaging Results None recorded. Procedure Notes None recorded. Medical Equipment None Reported. Allergies No known drug allergies Medications Name Sig Start Date Stop Date Status Note LastModified by Organization Details LastModified Time ketoconaz ole 2 % shampoo active Not Available Not Available Not Available triazolam 0.25 mg tablet 05/25 completed Medicati on ID: [id number] D uration Value: 30 Brand Name: triazola [...] mg tablet 08/22 completed Medicati on ID: [id number] Re ason: () Brand Name: lisinopr il [...] mg capsule 2018 active Medicati on ID: [id number] D uration Value: 90 Brand Name: tamsulos [...] mg tablet 2018 active Medicati on ID: [id number] B rand Name: Glucosam ine-Rehan droitin 3X Str Send Method: E-Prescr ibed Sub s Allowed: subs OK Medic ationGen ericName : Glucosam ine-Rehan droitin 3X Str Not Available Not Available Not Available Centrum Silver 0.4 mg-300 mcg-250 mcg tablet 2018 active Medicati on ID: [id number] B rand Name: Centrum Silver S end [...] SNOMED-CT Code Diagnosis ICD10 Code Diagnosis Note [id number] JERONIMO JUARES MD [facility] [address] [address] 05/08/2024 08:28:31 05/08/2024 09:44:40 Benign neoplasm of cranial nerve 27870032 D33.3 Sensorineu ral hearing loss of bilateral ears 322561555 H90.3 Audiologic al evaluation results:Ri ght ear:Normal sloping to moderately -severe sensorineu ral hearing loss with excellent word recognitio n.Left ear:Modera te to profound sensorineu ral hearing loss with poor word recognitio n.Tympanom etry:Right Ear:Type ALeft Ear:Type AAudiometr ic testing reviewed with the patient and his [...] Recorded Advance Directives Directive None Recorded Payers Insurance Date Sequence Insurance Name Policy Number Policy Mann Covered Member ID Mann Member ID Guarantor Name 05/30/2024 1 [facility] MEDIC[facility] PPO BLUE (MEDICARE REPLACEMENT PPO) [id number] Burak Torre [id number] Burak Torre
[2025-02-04 15:01] LABS: Prostate Specific Antigen 6.82 ng/mL (<0.05-4.0)
== END 2025-02-04 13:20 | disposition home or self-care (01) ==
LOC: HO.LAB 13:19
PROVIDERS: PCP Internal Medicine; Visit Provider Urology
DX: R97.20 Elevated prostate specific antigen [PSA] (principal)
CPT/HCPCS: 36415; 84153

== ENCOUNTER 2025-02-12 11:43 | Outpatient (AMB) | payer MEDICARE, SELFPAY ==
--- NOTE | 2025-02-12 11:44 | MHC.OFFVIS ---
Intake Visit Reasons: 6 month follow up/ pSA Intake Note: Patient is present for 6MO follow up Urology Medication:FINASTERIDE,TADALAFIL Antibiotic Allergy:NONE Blood Thinner:NONE Labs done :02/04/2025 PSA 6.82 Pediatric Occupational Therapist Required: No Accompanied by: Self / Same As Patient Allergies No Known Allergies (No Known Allergies*) Allergy (Verified 02/12/25 11:44) HPI Comments Details: Terry is a pleasant male. He is a patient of Dr. Eng. He seen for following urologic conditions - elevated PSA - lower urinary tract symptoms - erectile dysfunction Telemedicine Evaluation 15 min Consultation [facility] PSA 6 Discussed current result Continues with finasteride Six-month follow-up repeat PSA Consider prostate MRI Elevated PSA Initially had low PSA that jumped to 5 Prostate biopsy 01/31 negative Volume 45 g Current therapy [facility] 08/30 3.0, 09/28 2.7, 10/30 3.1, 04/01 3.25, 10/31 3.3, 11/01 5.9, 08/04 5.0 Free 25%, 02/01 6.2 ExoDX - 35.3 Lower urinary tract symptoms Current therapy Proscar Prior therapy combination Proscar with tamsulosin Symptom evaluation 10/29 nocturia x1, good stream, effective emptying PVR 0cc Erectile dysfunction Has switched to 20 mg Cialis every day Would also like 10 mg on demand PFSH Medical History Hepatitis C Skin cancer HTN (hypertension) Erectile dysfunction Enlarged prostate without lower urinary tract symptoms (luts) Elevated PSA Surgical History Status post surgical removal of malignant neoplasm of skin S/P nasal surgery H/O prostate biopsy Family History Father Lung cancer Mother Brain cancer Review of Systems Const All systems reviewed & are unremarkable except as noted in HPI and below Reports no additional complaints Resp Reports no additional complaints GI Reports no additional complaints Reports as per HPI Musc Reports no additional complaints Physical Exam Telemedicine evaluation Appropriate responses Regular breathing rate and rhythm HEENT Head: Yes normal to inspection Ears: hearing grossly normal bilaterally Eyes General: appearance normal, both eyes and all related structures Neck Neck: Yes normal visual inspection Chest Chest palpation & inspection: normal inspection of the chest Resp Effort & Inspection: normal respiratory effort and able to speak in complete sentences Telehealth Telehealth Telehealth Platform: [facility] [place] Location of provider rendering services: practice address Location of patient: address on file Patient Identification confirmed using: Name, : Yes Telehealth method: video Patient verbally consented to treatment: Yes Patient verbally consented to billing insurance company: Yes Patient informed of any privacy concerns related to visit: Yes Assessment & Plan Assessment & Plan (1) Elevated PSA: Code(s): R97.20 - Elevated prostate specific antigen [PSA] Category: Medical (2) Erectile dysfunction: Code(s): N52.9 - Male erectile dysfunction, unspecified Category: Medical Plan Six-month follow-up PSA office Orders: Orders PSA,Total (Free>4and<10) 6 Months N32.0 - Bladder-neck obstruction Medications: Refilled finasteride 5 mg PO DAILY 90 tabs 1RF 90 days R97.20 - Elevated prostate specific antigen [PSA] Patient Instructions: This note is constructed using voice recognition software. While every effort has been made to ensure accuracy buzzle buffer errors may have been included. Imaging studies, laboratory and physical exam results were discussed and reviewed in detail. No major barriers to patient understanding were identified. An opportunity to ask questions regarding the treatment plan was provided. All questions were answered. The patient expressed understanding and agreement with the above treatment plan. The patient is aware they should contact our office by phone for worsening of their current condition or the appearance of new urologic symptoms. Compliance is encouraged with any medications and followup testing that is ordered. It is a privilege to participate in the urologic care of your patient. If you have any questions or concerns regarding treatment for the above conditions, or other urologic issues, please do not hesitate to contact me. The office telephone contact is [phone]. Sincerely, Dr Melo Sims MD, [facility] - Urology Compassionate Specialist Care for the Genitourinary System Coding Level of Care Code Tele Est Pt Level 3 (64180) Complex EM visit Add On G2211 Diagnoses Elevated PSA R97.20 Erectile dysfunction N52.9
== END 2025-02-12 12:47 | disposition home or self-care (01) ==
LOC: HO.HUSH 11:43
PROVIDERS: PCP Internal Medicine; Visit Provider Urology
DX: R97.20 Elevated prostate specific antigen [PSA] (principal); N52.9 Male erectile dysfunction, unspecified
CPT/HCPCS: 99213; G2211